=== PATIENT | female | born 1950 | race Caucasian/White ===

== ENCOUNTER → 2019-01-21 | Outpatient (CLI) | payer OTHER ==
[~2019-01-21] VITALS: Ht 160 cm; Wt 68.0 kg
[~2019-01-21] MED LIST: ASPIR 8181 MG PO; LISINOPRIL20 MG PO; NEURONTIN 300300 M1 PO; VENTOLIN HFA 1818 GM INH; ZANTAC 150MG T150 MG PO
[2019-01-21 08:18] LABS: HEMATOCRIT 40.5 % (37.0-47.0); HEMOGLOBIN 13.2 gm/dL (12.0-15.0); MCH 27.8 pg (26.0-34.0); MCHC 32.7 g/dL (28.0-37.0); MCV 85.1 fL (80.0-100.0); RBC 4.76 mil/uL (4.20-5.00); RDW 14.2 % (10.5-14.5); WBC 7.1 thou/uL (4.0-11.0)
[2019-01-21 08:19] VITALS: BP 158/63
[2019-01-21 08:27] LABS: ANION GAP 7 mmol/L (7-16); BUN 12 mg/dL (7-18); CALCIUM 10.2 mg/dL (8.5-10.1); CHLORIDE 107 mmol/L (98-107); CO2 27 mmol/L (21-32); CREATININE 0.7 mg/dL (0.6-1.0); GLUCOSE 112 mg/dL (74-106); POTASSIUM 3.7 mmol/L (3.5-5.1); SODIUM 141 mmol/L (136-145)
[2019-01-21 08:41] LABS: CHOLESTEROL 222 mg/dL (<200); HDL CHOLESTEROL 45 mg/dL (>40); LDL CHOLESTEROL 166 mg/dL (<100); TC:HDL 4.9 Ratio (Not establshd); TRIGLYCERIDE 55 mg/dL (<150); VLDL 11 mg/dL (<40)
--- NOTE | 2019-01-21 09:21 | EKG ---
[place] [address] [address] [facility] [place] [address] ELECTROCARDIOGRAM REPORT Name: JOSE C GRAY [facility] [id number] ������������������ Admission: 01/21/19 ������������������ Attend Phys: Mt Ashley MD Discharge: ������������������ Date of : 54 Report #: [id number] ����������������������������������������������������������������� [id number] THIS REPORT FOR: //name// [facility] Test Date: 2019-01-21 Test Time: 08:05:12 Pat Name: JOSE C GRAY Department: Room: Gender: F [employer]: Trisha GÓMEZ : 1950 Requested By: Mt Ashley Order Number: [id number] MD: Richard Richard Measurements Intervals [place] Rate: 68 P: 69 OR: 146 QRS: 45 QRSD: 99 T: 50 QT: 416 QTc: 443 Interpretive Statements Sinus rhythm Minimal nonspecific ST segment abnormality No previous ECG available for comparison Electronically Signed On 01-21-2019 9:20:42 CDT by Richard Richard [email or web address] ��������������������������������������������� <ELECTRONICALLY SIGNED> ���������������������������������������� By: Richard Richard MD, [facility] ��������������������������������������������� 01/21/19 0920 [id number] Richard Richard MD, FACC /EPI
--- NOTE | 2019-01-21 13:51 | CATHLAB ---
[facility] [place] [address] INVASIVE PROCEDURE REPORT Name: JOSE C GRAY Room #: REG [facility]#: [id number] ������������� Admission: 01/21/19 ������������� Attend Phys: Mt Ashley MD Discharge: ��� ������������� ��� Date of : 54 Date of Service: 01/21/19 1351 �� Report #: [id number] �������� ��������������������������������������������[id number] THIS REPORT FOR: //name// APPROVED REPORT Study performed: 01/21/2019 10:02:39 Patient Details Patient Status: Out-Patient Room #: The patient is a 68 year-old female Event Personnel Mt Ashley [employer]er, Christ Hannah RN, Yana Blanco RTR, Dung Dickerson Valisa Monitor Procedures Performed Art Access - R femoral artery* Left Heart Cath w/or w/o Coronaries [id number] [facility] [id number] Initial Mod Sed Same Phys/QHP 5y [id number] Indication Dyspnea, Positive stress test, Chest pain Risk Factors Hypercholesterolemia, Hypertension Procedure Narrative The Right Groin^ was infiltrated with 1% Lidocaine subcutaneous anesthesia. A PINNACLE 4FR Sheath #[id number] sheath was inserted into the RFA^. Coronary angiography was performed using coronary diagnostic catheters. The right coronary system was accessed and visualized with a JR4 catheter. The left coronary system was accessed and visualized with a JL4 catheter. The left ventricle was accessed and visualized with a angled pigtail catheter. Left ventricular/Aortic Valve gradient assessed via catheter pullback. Left ventriculogram was performed in 30 degree projection. Hemostasis was obtained with manual pressure following sheath removal without any complications. There was no hematoma. Intraoperative Conscious Sedation Sedation start time: 10:08 Case end Time: 10:40 Fentanyl 0.2 mcg Versed 0.5 mg Fluoro Time: 1.41 minutes [facility] [address] [place] [address] INVASIVE PROCEDURE REPORT Name: JOSE C GRAYN Room #: REG [facility]#: [id number] ������������� Admission: 01/21/19 ������������� Attend Phys: Mt Ashley MD Discharge: ��� ������������� ��� Date of : 54 Date of Service: 01/21/19 1351 �� Report #: [id number] �������� ��������������������������������������������[id number] Dose: DAP 2195.00 cGycm2 291 mGy Contrast Type and Amount: Omnipaque 80 ml Coronary Angiography The patient's coronary anatomy is co- dominant. Diagnostic Cath Left Main This is a large caliber vessel, patent with no flow-limiting lesions. LAD The LAD is a moderate size caliber vessel, traversing the anterior wall and wrapping around the apex. There is mild disease in the mid segment, less than 20%. Diagonal 1 This is a patent vessel, with no flow-limiting lesions. Circumflex This is a patent vessel, supplies to OM vessels. OM1 This is a patent vessel, with no flow-limiting lesions. OM2 There is mild disease in the proximal segment, less than 20%. Right Coronary There is mild disease in the proximal segment, less than 20%. R PDA This is a patent vessel, with no flow-limiting lesions. Left Ventriculography The left ventricle is normal in size with normal contractility. The left ventricular ejection fraction is estimated to be >55%. Hemodynamics The aortic pressure is 171/74 mmHg with a mean of 104 mmHg. The left ventricular pressure is 196/28 mmHg with a mean of mmHg. The left ventricular end diastolic pressure is 38 mmHg. Conclusion 1. Mild, nonobstructive disease. 2. Normal LV systolic function. 3. Recommend aggressive risk factor management. ��������������������������������������������� <ELECTRONICALLY SIGNED> ���������������������������������������� By: Mt Ashley MD ��������������������������������������������� 01/21/19 1351 135 135 Mt Ashley MD /INF
== END | disposition home or self-care (01) ==
LOC: CATH 07:35
PROVIDERS: Internal Medicine Cardiovascular Disease
DX: I25.10 Atherosclerotic heart disease of native coronary artery without angina pectoris (principal); I10 Essential (primary) hypertension; E78.00 Pure hypercholesterolemia, unspecified; M19.90 Unspecified osteoarthritis, unspecified site; J44.9 Chronic obstructive pulmonary disease, unspecified; Z82.49 Family history of ischemic heart disease and other diseases of the circulatory system; K21.9 Gastro-esophageal reflux disease without esophagitis; Z79.899 Other long term (current) drug therapy; Z87.891 Personal history of nicotine dependence; Z98.890 Other specified postprocedural states